=== PATIENT | male | born 2000 | race African-American/Black ===

== ENCOUNTER 2018-05-17 20:37 | Emergency (ER) | payer OTHER ==
--- NOTE | 2018-05-17 21:02 | PDOC ---
Attending Attestation - HPI HPI: 05/17/18 21:49 The patient is a 7 year old male with a PMH of MR brought in by the aid for sore throat and abdominal pain. Patient is unable to provide further information. Aid at bedside states the patient is acting his usual self other than pointing to the areas where it hurts today. - Physicial Exam PE: 05/17/18 21:45 PEDS EXAM GENERAL: The child is awake and alert. THROAT: (+) The oropharynx is clear with erythema and exudates on the left. The mucous membranes are moist. CHEST: The lungs are clear without crackles, or wheezes. HEART: Heart is regular rhythm, with normal S1 and S2, no murmurs. ABDOMEN: The abdomen is soft. (+) Suprapubic tenderness. There is no organomegaly and no mass. There is no guarding or rebound. EXTREMITIES: Ambulatory. NEURO: Baseline mental status per walker. SKIN: Skin is unremarkable without rash or swelling. There is no bruising, and there are no other signs of injury. <Alanna Layton - Last Filed: 05/17/18 21:49> - Resident Resident Name: Mayur Brown - ED Attending Attestation I have performed the following: I have examined & evaluated the patient, The case was reviewed & discussed with the resident, I agree w/resident's findings & plan, Exceptions are as noted - Medical Decision Making 05/17/18 21:02 I, Dr. Mackenzie Abreu, DO, attest that this document has been prepared under my direction and personally reviewed by me in its entirety. I further attest, that it accurately reflects all work, treatment, procedures and medical decision -making performed by me. 05/17/18 21:41 a/p: 17yo male with hx of MR with sore throat, cp and abd pain -exudates on posterior pharynx -concern for poss strep throat -will obtain cxr, ekg -pt is nontoxic in appearance -c/o dysuria -will send ua -will monitor and reassess 05/17/18 22:06 ua negative strep pending 05/17/18 23:27 strep negative cxr clear culture pending pt is nontoxic in appearance stable for dc to home <Mackenzie Abreu - Last Filed: 05/17/18 23:28> Heart Score/ECG Review - ECG Intrepretation Comment:: 05/17/18 22:06 sinus at 98, nl axis, nl interval, no acute st/t wave findings <Mackenzie Abreu - Last Filed: 05/17/18 23:28>
[2018-05-17] MEDS ORDERED: IBUPROFEN 600 MG TABLET (FP) PO ONE ×2 (21:03→21:22)
[2018-05-17 21:28] VITALS: BP 140/100; PULSE 99; TEMP 98.7; BMI 30.2
[2018-05-17 21:36] LABS: URINE APPEARANCE CLEAR; URINE BILIRUBIN NEGATIVE (<2.0 mg/dL); URINE COLOR STRAW; URINE GLUCOSE (UA) NEGATIVE (NEGATIVE); URINE KETONE NEGATIVE (NEGATIVE); URINE LEUK ESTERASE NEGATIVE (NEGATIVE); URINE NITRITE NEGATIVE (NEGATIVE); URINE PROTEIN NEGATIVE (NEGATIVE); URINE UROBILINOGEN NEGATIVE mg/dL (0.2-1.0)
--- NOTE | 2018-05-17 21:48 | PDOC ---
History of Present Illness - General Chief Complaint: Pain Stated Complaint: PAIN Time Seen by Provider: 05/17/18 20:53 History Source: Patient Exam Limitations: No Limitations - History of Present Illness Initial Comments: 05/17/18 21:49 Patient is a 17M with history of autism, moderate intellectual disability coming from [facility] here today complaining of pain to his chest. History is limited because patient is minimally verbal and answers yes to all questions. Per his paperwork this started today and he complained of chest pain. No fevers noted. No vomiting, or cough reported. Past History - Past Medical History Allergies/Adverse Reactions: Allergies Allergy/AdvReac Type Severity Reaction Status Date / Time No Known Allergies Allergy Verified 05/17/18 20:43 COPD: No Other medical history: MR - Suicide/Smoking/Psychosocial Hx Smoking History: Never smoked Have you smoked in the past 12 months: No Information on smoking cessation initiated: No Hx Alcohol Use: No Drug/Substance Use Hx: No Review of Systems - Review of Systems Comments:: 05/17/18 21:50 GENERAL/CONSTITUTIONAL: No fever or chills. No weakness. HEAD, EYES, EARS, NOSE AND THROAT: No change in vision. No sore throat. CARDIOVASCULAR: +chest pain no shortness of breath RESPIRATORY: No cough, wheezing, or hemoptysis. GASTROINTESTINAL: No nausea, vomiting, diarrhea or constipation. GENITOURINARY: No dysuria, frequency, or change in urination. MUSCULOSKELETAL: No joint or muscle swelling or pain. No neck or back pain. SKIN: No rash NEUROLOGIC: No headache, vertigo, loss of consciousness, or change in strength/ sensation. ALLERGIC/IMMUNOLOGIC: No hives or skin allergy. *Physical Exam - Vital Signs Last Vital Signs Temp Pulse Resp BP Pulse Ox 98.7 F 99 H 18 140/100 96 05/17/18 20:43 05/17/18 20:43 05/17/18 20:43 05/17/18 20:43 05/17/18 20:43 - Physical Exam Comments: 05/17/18 21:51 GENERAL: Awake, alert, in no acute distress HEAD: No signs of trauma, normocephalic, atraumatic EYES: PERRLA, EOMI, sclera anicteric, conjunctiva clear ENT: Auricles normal inspection, hearing grossly normal, nares patent, oropharynx erythematous with exudates NECK: Normal ROM, supple, no lymphadenopathy, JVD, or masses LUNGS: No distress, speaks full sentences, clear to auscultation bilaterally HEART: Regular rate and rhythm, normal S1 and S2, no murmurs, rubs or gallops, peripheral pulses normal and equal bilaterally. ABDOMEN: Soft, nontender, normoactive bowel sounds. No guarding, no rebound. No masses EXTREMITIES: Normal inspection, Normal range of motion, no edema. No clubbing or cyanosis. NEUROLOGICAL: Cranial nerves II through XII grossly intact. Normal speech, no focal sensorimotor deficits SKIN: Warm, Dry, normal turgor, no rashes or lesions noted. Moderate Sedation - Procedure Monitoring Vital Signs: Procedure Monitoring Vital Signs Temperature 98.7 F 05/17/18 20:43 Pulse Rate 99 H 05/17/18 20:43 Respiratory Rate 18 05/17/18 20:43 Blood Pressure 140/100 05/17/18 20:43 O2 Sat by Pulse Oximetry (%) 96 05/17/18 20:43 ED Treatment Course - ADDITIONAL ORDERS Additional order review: Laboratory Results 05/17/18 21:25 Urine Color Straw Urine Appearance Clear Urine pH 7.0 Ur Specific [place] 1.008 L Urine Protein Negative Urine Glucose (UA) Negative Urine Ketones Negative Urine Blood Negative Urine Nitrite Negative Urine Bilirubin Negative Urine Urobilinogen Negative Ur Leukocyte Esterase Negative - RADIOLOGY Radiology Studies Ordered: Category Date Time Status CHEST PA & LAT [RAD] Stat Radiology 05/17/18 20:58 Ordered - Medications Given in the ED: ED Medications Discontinued Medications Generic Name Dose Route Start Last Admin Trade Name Freq PRN Reason Stop Dose Admin Ibuprofen 600 mg 05/17/18 21:03 05/17/18 21:32 Motrin - PO 05/17/18 21:04 600 mg ONCE ONE Administration Medical Decision Making - Medical Decision Making 05/17/18 22:00 Patient is 17M here today with chest pain and exudates in oropharynx. DDx includes, but is not limited to: pneumonia, strep, arrhythmia. Vitals normal and stable. EKG shows normal sinus rhythm with no st elevations/depressions. Normal axis. Normal intervals. No significant t wave abnormalities. 05/17/18 22:47 Strep negative. UA normal. CXR clear Will discharge home with instructions to take motrin for pain. Given return precautions. Will follow up with primary care. *DC/Admit/Observation/Transfer Diagnosis at time of Disposition: Chest pain - Discharge Dispostion Disposition: HOME Condition at time of disposition: Good Decision to Admit order: No - Referrals Referrals: Ketty Mancera MD [Primary Care Provider] - - Patient Instructions Printed Discharge Instructions: DI for Atypical Chest Pain Additional Instructions: Please follow up with your primary care doctor this week. Please return if you have any new, worsening or concerning symptoms, especially increasing pain, fever and shortness of breath. - Post Discharge Activity
--- NOTE | 2018-05-18 11:56 | EKG ---
Test Reason : Blood Pressure : / mmHG Vent. Rate : 098 BPM Atrial Rate : 098 BPM P-R Int : 128 ms QRS Dur : 086 ms QT Int : 340 ms P-R-T Axes : 068 017 038 degrees QTc Int : 434 ms NORMAL SINUS RHYTHM NORMAL ECG NO PREVIOUS ECGS AVAILABLE Confirmed by PATRICK VAZQUEZ, MARY JO ([id number]) on 05/18/2018 11:56:26 AM Referred By: Confirmed By:MARY JO NGUYEN MD
== END 2018-05-17 23:50 | disposition home or self-care (01) ==
LOC: JER 20:37
DX: R07.9 Chest pain, unspecified (principal); F84.0 Autistic disorder; F79 Unspecified intellectual disabilities
CPT/HCPCS: 71046-TC-FY; 81003; 87070; 87077; 87880; 93005; 93010; 99281-25

== ENCOUNTER 2019-05-29 21:18 | Emergency (ER) | payer OTHER ==
[2019-05-29 21:48] VITALS: TEMP 98.3; BMI 33.3
--- NOTE | 2019-05-29 23:09 | PDOC ---
History of Present Illness - General Chief Complaint: Rash Stated Complaint: RASH Time Seen by Provider: 05/29/19 22:20 History Source: Patient Exam Limitations: No Limitations - History of Present Illness Initial Comments: 18 yo M with hx of intellectual disability and autism presents to the emergency department from his skilled nursing, [facility] for rash. Per the aide at bedside, when she came on shift he had a rash located on his chest, neck, face, abdomen, back, arms, and the hands sparing the palms. She is unsure of how long it has been there due to being gone from the home for 1 week but was told by colleagues that it has been at least a few days. Per the patient, he states it itches. Per the nursing chart records, the patient has received his childhood vaccines and 1x dose of varicella vaccine. The aide gave the patient benadryl shortly before presentation. Per the patient, he states he feels like the rash is "itchy". Past History - Past Medical History Allergies/Adverse Reactions: Allergies Allergy/AdvReac Type Severity Reaction Status Date / Time No Known Allergies Allergy Verified 05/29/19 21:48 Home Medications: Ambulatory Orders Acyclovir [Zovirax -] 800 mg PO 5XD #50 tablet 05/30/19 COPD: No - Psycho Social/Smoking Cessation Hx Smoking History: Never smoked Have you smoked in the past 12 months: No Information on smoking cessation initiated: No Hx Alcohol Use: No Drug/Substance Use Hx: No Review of Systems - Review of Systems Able to Perform ROS?: Yes Is the patient limited Eritrean proficient: No Constitutional: No: Chills, Diaphoresis, Fever, Weakness HEENTM: No: Eye Pain, Ear Pain, Nose Pain, Throat Pain, Mouth Pain Respiratory: No: Cough, Shortness of Breath Cardiac (ROS): No: Chest Pain ABD/GI: No: Constipated, Diarrhea, Nausea, Rectal Bleeding, Vomiting, Tarry Stools : No: Burning, Dysuria Musculoskeletal: No: Back Pain, Joint Pain, Neck Pain Integumentary: Yes: Pruritus, Rash. No: Bruising, Erythema Neurological: No: Headache, Numbness Psychiatric: No: Change in Appetite Endocrine: No: Unexplained Weight Loss Hematologic/Lymphatic: No: Anemia *Physical Exam - Vital Signs Last Vital Signs Temp Pulse Resp BP Pulse Ox 98.3 F 104 H 17 134/82 100 05/29/19 21:42 05/29/19 21:42 05/29/19 21:42 05/29/19 21:42 05/29/19 21:42 - Physical Exam General Appearance: Yes: Nourished, Appropriately Dressed, Obese. No: Apparent Distress, Intoxicated HEENT: positive: EOMI, MICH, Normal ENT Inspection, Normal Voice, Symmetrical, TMs Normal, Pharynx Normal, Hearing Grossly Normal. negative: Pale Conjunctivae , Scleral Icterus (R), Scleral Icterus (L), Muffled/Hoarse voice, Pharyngeal Erythema, Tonsillar Exudate, Tonsillar Erythema, Nasal Congestion, Rhinorrhea, Sinus Tenderness, Excessive drooling Neck: positive: Trachea midline, Supple. negative: Tender, Lymphadenopathy (R) , Lymphadenopathy (L), Tender lateral, Tender midline Respiratory/Chest: positive: Lungs Clear, Normal Breath Sounds. negative: Chest Tender, Respiratory Distress, Accessory Muscle Use, Crackles, Rales, Rhonchi, Stridor, Wheezing Cardiovascular: positive: Regular Rhythm, Regular Rate, S1, S2. negative: Systolic Murmur Gastrointestinal/Abdominal: positive: Normal Bowel Sounds, Flat, Soft. negative : Tender Lymphatic: negative: Adenopathy Musculoskeletal: positive: Normal Inspection. negative: CVA Tenderness, Vertebral Tenderness Extremity: positive: Normal Capillary Refill, Normal Inspection, Normal Range of Motion. negative: Tender, Swelling, Calf Tenderness Integumentary: positive: Normal Color, Dry, Warm, Rash (various stages of healing. erythamtous base with vesicles spread throughout the abdomen, chest, back, face, arms.) Neurologic: positive: Alert, Normal Mood/Affect ED Treatment Course - LABORATORY CBC & Chemistry Diagram: 05/30/19 00:30 05/30/19 00:30 Medical Decision Making - Medical Decision Making 18 yo M with hx of autism and intellectual disability presenting with rash with various stages of healing with vesicles located on erythematous bases consistent with varicella infection Initial vitals: Initial Vital Signs Temp Pulse Resp BP Pulse Ox 98.3 F 104 H 17 134/82 100 05/29/19 21:42 05/29/19 21:42 05/29/19 21:42 05/29/19 21:42 05/29/19 21:42 Work up: Laboratory Tests 05/30/19 05/30/19 00:30 00:30 WBC 8.2 RBC 4.66 Hgb 14.2 Hct 40.4 MCV 86.5 MCH 30.5 MCHC 35.2 RDW 13.4 Plt Count 195 MPV 8.0 Absolute Neuts (auto) 3.8 Total Counted 100 Neutrophils % 46.6 Neutrophils % (Manual) 40.0 L Band Neutrophils % 10.0 Lymphocytes % 32.1 Lymphocytes % (Manual) 40.0 Monocytes % 18.2 H Monocytes % (Manual) 10 Eosinophils % 2.0 Basophils % 1.1 Nucleated RBC % 0 Sodium 140 Potassium 4.4 Chloride 108 H Carbon Dioxide 26 Anion Gap 7 L BUN 8.4 Creatinine 0.7 Est GFR (CKD-EPI)AfAm 157.45 Est GFR (CKD-EPI)NonAf 135.85 Random Glucose 93 Calcium 9.1 Total Bilirubin 0.4 AST 81 H ALT 102 H Alkaline Phosphatase 108 Total Protein 7.2 Albumin 3.8 Per the aide, patient is not altered and at baseline. The patient does not have a fever and no anti-pyretic was given prior to presentation CXR shows a right basilar platelike atlectasis With no elevation of WBC and fever, unlikely to be having disseminated disease. However the patient lives in a skilled nursing which poses a risk of infection. I spoke to Dr. Mancera who is the medical assistant internal medicine of the facility. Joint agreement confirmed for starting on acyclovir. Patient had a prescription sent to the pharmacy. Patient discharged back to skilled nursing. Discharge - Discharge Information Problems reviewed: Yes Clinical Impression/Diagnosis: Chickenpox Condition: Stable Disposition: HOME - Admission No - Additional Discharge Information Prescriptions: Acyclovir [Zovirax -] 800 mg PO 5XD #50 tablet - Follow up/Referral Referrals: [facility] [place] [Provider Group] - Patient Discharge Instructions Patient Printed Discharge Instructions: DI for Chickenpox-Adult Additional Instructions: You were seen in the emergency department for the evaluation of your skin rash, You have chickenpox. Please refrain from others until your symptoms resolve. Please take the medication as prescribed and adhere to the schedule. Please return to the emergency department if you have worsening symptoms or new concerning symptoms. Thank you. Please see your primary medical doctor within 1 week after discharge. Thank you. - Post Discharge Activity
[2019-05-29] MEDS ORDERED: WATER IVPB ONE (23:10)
[2019-05-29] MEDS ORDERED: ACYCLOVIR IVPB ONE (23:10)
[2019-05-29] MEDS ORDERED: DEXTROSE 5% IVPB ONE (23:10)
--- NOTE | 2019-05-30 00:06 | PDOC ---
Documentation entered by Kacie Nguyen SCRIBE, acting as scribe for Mackenzie Abreu DO. Mackenzie Abreu, DO: This documentation has been prepared by the Wendy benjamin Xhesika, SCRIBE, under my direction and personally reviewed by me in its entirety. I confirm that the documentation accurately reflects all work, treatment, procedures, and medical decision making performed by me. Attending Attestation - Resident Resident Name: Drew Catalan - ED Attending Attestation I have performed the following: I have examined & evaluated the patient, The case was reviewed & discussed with the resident, I agree w/resident's findings & plan, Exceptions are as noted - HPI HPI: 05/29/19 23:09 The patient is a 18 year old male with a significant PMH of autism, moderate intellectual disability who presents to the emergency department from [facility] for rash (torso, stomach, back, forehead, neck, shoulder). Aid at bedside states she is on car shifter so she does not know much about his rash. Aid notes the patient received Benadryl. Aid denies any bug infestations. The patient denies chest pain, shortness of breath, headache and dizziness. Denies fever, chills, cough, nausea, vomiting, diarrhea and constipation. Denies dysuria, frequency, urgency and hematuria. Allergies: NKDA - Physicial Exam PE: 05/29/19 23:09 GENERAL: Awake, alert, answers basic yes/no questions. NECK: Normal ROM, supple, no lymphadenopathy, JVD, or masses LUNGS: Breath sounds equal, clear to auscultation bilaterally. No wheezes, and no crackles HEART: Regular rate and rhythm, normal S1 and S2, no murmurs, rubs or gallops ABDOMEN: Soft, nontender, normoactive bowel sounds. No guarding, no rebound. No masses EXTREMITIES: Normal range of motion, no edema. No clubbing or cyanosis. No cords, erythema, or tenderness SKIN: +vesicular rash diffusely from head to upper thighs, teardrop base, disseminated consistent with chicken pox. - Medical Decision Making 05/30/19 00:04 a/p: 18yo male with diffuse vesicular rash -rash consistent with chickenpox -will send labs, cxr -will start acyclovir -will monitor and reassess -no cough, no meningeal signs, no fevers -will monitor and reassess 05/30/19 01:28 trace fluid in the fissure on cxr 05/30/19 01:[address] Mancera pt with chickenpox no elevated wbc 05/30/19 02:02 case discussed with Angela Baig who states patient may return to the facility and that rx should be sent to [facility] pt pending chem, if normal ok to dc to home
[2019-05-30 01:38] LABS: BASO % 1.1 % (0-2.0); HEMATOCRIT 40.4 % (35.4-49); HEMOGLOBIN 14.2 GM/dL (11.7-16.9); LYMPH % 32.1 % (8-40); MCH 30.5 pg (25.7-33.7); MCHC 35.2 g/dl (32.0-35.9); MEAN CELL VOLUME 86.5 fl (80-96); MONO % 18.2 % (3.8-10.2); NEUT % 46.6 % (42.8-82.8); PLATELET COUNT 195 K/MM3 (134-434); RBC 4.66 M/mm3 (4.00-5.60); RDW 13.4 % (11.9-15.9); WHITE BLOOD COUNT 8.2 K/mm3 (4.0-10.0)
[2019-05-30 02:15] LABS: ALBUMIN 3.8 g/dl (3.4-5.0); BILIRUBIN,TOTAL 0.4 mg/dL (0.2-1); BLOOD UREA NITROGEN 8.4 mg/dL (7-18); CALCIUM 9.1 mg/dL (8.5-10.1); CREATININE 0.7 mg/dL (0.55-1.3); POTASSIUM 4.4 mmol/L (3.5-5.1); TOT PROT 7.2 g/dl (6.4-8.2)
[2019-05-30 05:01] VITALS: BP 127/86; PULSE 87
== END 2019-05-30 04:59 | disposition home or self-care (01) ==
LOC: JER 21:18
DX: B01.9 Varicella without complication (principal)
CPT/HCPCS: 36415; 71045-TC-FY; 80053; 85025; 99283-25